=== PATIENT | male | born 1995 | race Caucasian/White ===

== ENCOUNTER 2022-02-21 20:18 | Emergency (ER) | payer BC, MEDICAID ==
[2022-02-21 21:55] LABS: CARBON DIOXIDE,CO2 23.8 mmol/L (21.0-32.0); POTASSIUM,K 3.4 mmol/L (3.5-5.1)
== END 2022-02-21 22:12 | disposition home or self-care (01) ==
LOC: MW.ED 20:18
DX: Z77.098 Contact with and (suspected) exposure to other hazardous, chiefly nonmedicinal, chemicals (principal); Z72.0 Tobacco use
CPT/HCPCS: 36415; 80053; 82375; 85025; 93005; 99283

== ENCOUNTER 2023-12-31 17:02 | Emergency (ER) | payer SELFPAY ==
[2023-12-31 17:25] LABS: HEMATOCRIT 52.9 % (42.0-52.0); HEMOGLOBIN 18.1 g/dL (14.0-18.0); MEAN CORPUSCULAR HEMOGLOBIN 28.2 pg (28.0-32.0); MEAN CORPUSCULAR HGB CONC 34.2 g/dL (32.0-36.0); MEAN CORPUSCULAR VOLUME 82.4 fL (83.0-99.0); MEAN PLATELET VOLUME 10.4 fL (9.4-12.4); NRBC ABSOLUTE 0.02 K/uL (0.00-0.02); NRBC PERCENT 0.1 /100WBC (0.0-0.2); PLATELET COUNT,PLT 284 K/uL (150-400); RED BLOOD CELL COUNT 6.42 M/uL (4.52-5.90); WHITE BLOOD CELL COUNT,WBC 15.57 K/uL (3.9-11.3)
[2023-12-31] MEDS: Sodium Chloride 0.9% 1,000 ML IV ONE (17:49)
[2023-12-31 17:54] LABS: A/G RATIO 0.9 (0.9-1.6); ALBUMIN 3.9 g/dL (3.4-5.0); BILIRUBIN TOTAL 0.7 mg/dL (0.2-1.0); CALCIUM 9.3 mg/dL (8.5-10.1); CARBON DIOXIDE,CO2 27.5 mmol/L (21.0-32.0); CREATININE 1.4 mg/dL (0.8-1.3); EST CRCL DRUG DOSING (CG) 81.84 mL/min; POTASSIUM,K 3.5 mmol/L (3.5-5.1); PROTEIN TOTAL,TP 8.1 g/dL (6.4-8.2)
[2023-12-31] MEDS: Aspirin 81 MG Tab.Chew PO ONE (18:03)
[2023-12-31 18:05] LABS: BASOPHILS ABSOLUTE MAN 0.16 K/uL (0.00-0.20); BASOPHILS PERCENT MAN 1 % (0-1); MONOCYTES PERCENT MAN 9 % (0-8); SEG NEUTROPHILS ABSOLUTE MAN 8.87 K/uL (1.80-7.70); SEG NEUTROPHILS PERCENT MAN 57 % (41-71)
[2023-12-31 18:06] LABS: LYMPHOCYTES % ATYPICAL MANUAL 13; LYMPHOCYTES ABSOLUTE MAN 3.11 K/uL (1.00-4.80); LYMPHOCYTES PERCENT MAN 20 % (24-44)
[2023-12-31 18:17] LABS: APPEARANCE,URINE CLEAR; BILIRUBIN,URINE NEGATIVE (NEGATIVE); COLOR,URINE YELLOW; GLUCOSE,URINE NEGATIVE (NEGATIVE); KETONES,URINE TRACE mg/dL (NEGATIVE); LEUKOCYTE ESTERASE,URINE NEGATIVE (NEGATIVE); NITRITE,URINE NEGATIVE (NEGATIVE); OCCULT BLOOD,URINE TRACE-INTACT (NEGATIVE); PROTEIN,URINE 100 mg/dL (NEGATIVE); UROBILINOGEN,URINE 0.2 EU/dL (<2.0)
[2023-12-31 18:27] LABS: AMPHETAMINES SCREEN, URINE NEGATIVE (CUTOFF=500); BARBITURATE SCREEN,URINE NEGATIVE (CUTOFF=200); BENZODIAZEPINES SCREEN,URINE NEGATIVE (CUTOFF=150); BUPRENORPHINE SCREEN,URINE NEGATIVE (CUTOFF=10); METHADONE SCREEN, URINE NEGATIVE (CUTOFF=200); METHAMPHETAMINES SCREEN, URINE NEGATIVE (CUTOFF=500); OXYCODONE SCREEN,URINE NEGATIVE (CUT0FF=100); PCP SCREEN,URINE NEGATIVE (CUTOFF=25); THC SCREEN,URINE 20 NG/ML PRESUMPTIVE POSITIVE (CUTOFF=50)
[2023-12-31 18:30] LABS: EPITHELIAL CELLS,URINE RARE (NONE-FEW); RBC,URINE 0-5 (0-2/HPF); WBC,URINE 0-1 (0-5/HPF)
[2023-12-31 18:31] LABS: BACTERIA,URINE RARE (NEGATIVE); MUCUS,URINE LIGHT (NONE-MOD)
[2023-12-31] MEDS: Iopamidol 755 MG/ML 500 ML Multipack Bottle IVPUSH ONE (19:29)
== END 2023-12-31 22:31 ==
LOC: MW.ED 17:02
DX: I21.4 Non-ST elevation (NSTEMI) myocardial infarction (principal); Z75.8 Other problems related to medical facilities and other health care
CPT/HCPCS: 36415; 71045; 71275; 80053; 80305; 81001; 83690; 83880; 84443; 84484; 85025; 93005; 96360; 99285; A9270; J7030; Q9967; 93010

== ENCOUNTER 2024-01-28 04:53 | Emergency (ER) | payer MEDICAID ==
[2024-01-28] MEDS: Tranexamic Acid 1,000 MG in Sodium Chloride 0.9% 100 ML IV ONE (05:13)
[2024-01-28] MEDS: Tranexamic Acid 1,000 MG/10 ML Vial TOP ONE (05:15)
[2024-01-28] MEDS: Ondansetron 4 MG Tab.DIS PO ONE (06:31)
== END 2024-01-28 07:43 | disposition home or self-care (01) ==
LOC: MW.ED 04:53
DX: K92.0 Hematemesis (principal); K08.409 Partial loss of teeth, unspecified cause, unspecified class; K06.8 Other specified disorders of gingiva and edentulous alveolar ridge
CPT/HCPCS: 99284; A9270; J3490

== ENCOUNTER 2024-12-15 23:05 | Emergency (ER) | payer OTHER ==
[2024-12-16 00:17] LABS: APPEARANCE,URINE CLEAR; GLUCOSE,URINE NEGATIVE (NEGATIVE); OCCULT BLOOD,URINE MODERATE (NEGATIVE)
[2024-12-16 00:27] LABS: EPITHELIAL CELLS,URINE RARE (NONE-FEW)
[2024-12-16 01:48] LABS: C. TRACHOMATIS BY PCR NOT DETECTED; N. GONORRHOEAE BY PCR NOT DETECTED
[2024-12-16] MEDS: cefTRIAXone 1 GM in Lidocaine 1% 2.1 ML IM ONE (02:57)
== END 2024-12-16 03:05 | disposition home or self-care (01) ==
LOC: MW.ED 23:05
DX: N34.2 Other urethritis (principal)
CPT/HCPCS: 74176; 81001; 87491; 87591; 96372; 99284; J0696; J2003; Q0144; 99283; A9270-GY